=== PATIENT | female | born 1955 | race Caucasian/White ===

== ENCOUNTER → 2016-07-01 | Outpatient (CLI) | payer BC ==
[~2016-07-01] VITALS: Ht 167.6 cm; Wt 101.6 kg
[~2016-07-01] MED LIST: AMIT150T PO; AMLO5TAB4 PO; CALC-146 PO; CATHETER FLUSH 10 ML SYR IV PRN; CHOL20002 PO; DOCU-143 PO; FEXO-46 PO; GARL1TAB PO; KRIL1CAP18 PO; L.AC1CAP6 PO; LISI-552 PO; MELA10CA2 PO; MELO15TA39 PO; MULT-642 PO; OMEP20CA12 PO; TRAM-42 PO
--- NOTE | 2016-07-01 12:52 | ECHOCARDIOGRAPHY REPORT ---
PROCEDURE PHYSICIAN: CONNOR MANRIQUEZ DATE OF PROCEDURE: 07/01/2016 TWO DIMENSIONAL ECHOCARDIOGRAM REPORT PRIMARY PHYSICIAN: OTHER PHYSICIAN: REFERRING PHYSICIAN: Dr. Veronica Waterman ORDERING PHYSICIAN: INDICATION FOR THE PROCEDURE: Hypertension, TIA MEASUREMENTS DERIVED VALUES LV DIAMETER (LAX) NORMALS NORMALS Diastolic 4.8 (3.6-5.2) Eject. Fract. 60% (60%+/-6%) Systolic (2.3-3.9) Diastolic Vol. % Shortening (0.22-0.42) Systolic Vol. Aortic Root IVS THICKNESS Diastolic 1.1 (0.6-1.1) LVPW THICKNESS Diastolic 1.1 (0.6-1.1) LA DIAMETER Systolic 3.5 (2.1-3.7) FINDINGS: 1. Technical quality is good. 2. The left ventricle is normal in size with normal contractility. Systolic function appeared to be normal. Estimated ejection fraction 60%. 3. The left atrium is normal in size. No clot or thrombus were seen within the left atrium. 4. The right atrium and right ventricle are normal in size. No clot or thrombus were seen within the right side. 5. Mitral valve is normal in morphology with mild mitral regurgitation noted by color Doppler flow. No mitral valve prolapse. No mitral valve stenosis. 6. Aortic valve is trileaflet with normal opening and closing pattern. No significant aortic stenosis or regurgitation was seen. 7. Tricuspid valve is normal in morphology with mild tricuspid regurgitation noted by color Doppler flow. Doppler across tricuspid valve estimated pulmonary artery pressure of 27+ right atrial pressure. 8. Pulmonic valve is functioning normally. 9. No pericardial effusion. CONCLUSION: 1. Normal left ventricular size and systolic function. Estimated ejection fraction 60%. 2. Mild mitral and tricuspid regurgitation. 3. Estimated pulmonary artery pressure of 35 mmHg. Job ID: [id number] Dictated Date: 07/01/2016 11:57:27 Independent Agent Music Education Date: 07/01/2016 12:47:59 / leah
[2016-07-01 13:01] VITALS: BP 159/99
[2016-07-01 13:15] VITALS: BP 217/75
--- NOTE | 2016-07-01 20:57 | STRESS TEST ---
PROCEDURE PHYSICIAN: CONNOR MANRIQUEZ DATE OF PROCEDURE: 07/01/2016 EXERCISE MYOVIEW STRESS TEST REPORT REFERRING PHYSICIAN: Dr. Veronica Waterman. INDICATIONS FOR THE PROCEDURE: 1. Shortness of breath. 2. TIA. 3. Hypertension. BASELINE HEART RATE: 90 BASELINE BLOOD PRESSURE: 159/99. BASELINE EKG: Sinus rhythm with no ischemic changes. SUMMARY: The patient was injected with 10.19 mCi of technetium 99 Myoview and the resting images were obtained. Then the patient started exercising with a baseline heart rate, blood pressure and EKG mentioned above. At minute 5 and 10 seconds, she was injected with 31.4 mCi of technetium 99 Myoview. She was able to exercise for total of 6 minutes on standard Kenneth protocol, achieving maximum heart rate of 135, which is 85% of maximum expected heart rate. With peak exercise level, EKG was showing no significant ischemic changes. Blood pressure was 217/75. During recovery, heart rate and blood pressure returned to baseline. EKG returned to baseline. The resting and stress images were reviewed and compared in the short axis, horizontal long axis, and vertical long axis views. Review of the images showed breast attenuation affecting the quality of the images. There is questionable mild ischemia involving the mid to apical anterolateral and inferolateral wall. SSS is 9, SDS 5, TID value 0.87. On the gated images, the left ventricle appeared to be normal size with mild diffuse left ventricular hypokinesia. Calculated ejection fraction 46%. CONCLUSIONS: 1. Fair exercise tolerance a total of 6 minutes on standard Kenneth protocol. Total 7 METs, achieving 85% of maximum expected heart rate. 2. Severe hypertensive response to exercise. Returned to baseline during recovery. 3. Nondiagnostic EKG changes with exercise. Returned to baseline during recovery. 4. Breast attenuation affecting the quality of the study with mild reversible ischemia involving the mid to apical anterolateral and inferolateral wall. 5. Normal left ventricular size with mild diffuse left ventricular hypokinesia. Calculated ejection fraction 46%. Job ID: [id number] Dictated Date: 07/01/2016 16:52:48 Coal Conveyor Operator Date: 07/01/2016 20:52:13 / joelle
== END ==
LOC: CARD 09:57
PROVIDERS: ATTEND Internal Medicine Cardiovascular Disease
DX: I10 Essential (primary) hypertension (principal); Z87.891 Personal history of nicotine dependence; G47.33 Obstructive sleep apnea (adult) (pediatric)
CPT/HCPCS: 78452; 93017; 93306

== ENCOUNTER 2016-07-08 06:41 | Day surgery (SDC) | payer BC ==
[~2016-07-08] VITALS: Ht 167.6 cm; Wt 103.9 kg
[2016-07-08] VITALS (15 sets, daily range): BP systolic 93–155; BP diastolic 67–88
[2016-07-08] MEDS ORDERED: NS IV 1000 ML 1,000 ML ONE (06:59)
[2016-07-08] MEDS ORDERED: LIDOCAINE 1% INJ 20 ML (XYLOCAINE) VIAL ONE (06:59)
[2016-07-08] MEDS ORDERED: HEParin (CATH LAB) 2,000 ML IV ONE (06:59)
[2016-07-08] MEDS ORDERED: NS IV 1000 ML 1,000 ML IV SCH (07:30)
[2016-07-08 07:34] LABS: BILIRUBIN,URINE NEGATIVE (NEGATIVE); KETONES,URINE NEGATIVE (NEGATIVE); LEUKOCYTE ESTERASE ,URINE 3+ (NEGATIVE); NITRITE,URINE NEGATIVE (NEGATIVE); PH,URINE 6.5 (5-9); PROTEIN,URINE NEGATIVE (NEGATIVE); UROBILINOGEN,URINE NORMAL (NORMAL)
[2016-07-08 07:35] LABS: MEAN PLATELET VOLUME 9.9 FL (7.4-10.4); RED BLOOD COUNT 4.39 10^6/uL (4.35-5.85); RED CELL DISTRIBUTION WIDTH 14.7 % (10.0-14.5); WHITE BLOOD COUNT 8.5 10^3/uL (4.3-11.0)
[2016-07-08] MEDS ORDERED: CALC-146 PO (07:38)
[2016-07-08] MEDS ORDERED: FEXO-46 PO (07:38)
[2016-07-08] MEDS ORDERED: L.AC1CAP6 PO (07:38)
[2016-07-08] MEDS ORDERED: OMEP20CA12 PO (07:38)
[2016-07-08] MEDS ORDERED: AMLO5TAB4 PO (07:38)
[2016-07-08] MEDS ORDERED: KRIL1CAP18 PO (07:38)
[2016-07-08] MEDS ORDERED: MELO15TA39 PO (07:38)
[2016-07-08] MEDS ORDERED: LISI-552 PO (07:38)
[2016-07-08] MEDS ORDERED: DOCU-143 PO (07:38)
[2016-07-08] MEDS ORDERED: MULT-642 PO (07:38)
[2016-07-08] MEDS ORDERED: AMIT150T PO (07:38)
[2016-07-08] MEDS ORDERED: MELA10CA2 PO (07:38)
[2016-07-08] MEDS ORDERED: GARL1TAB PO (07:38)
[2016-07-08] MEDS ORDERED: CHOL20002 PO (07:38)
[2016-07-08] MEDS ORDERED: TRAM-42 PO (07:38)
[2016-07-08 07:44] LABS: PROTHROMBIN TIME PATIENT 13.1 SEC (12.2-14.7)
--- NOTE | 2016-07-08 07:48 | Diagnostic Imaging Report ---
INDICATION: Preoperative evaluation. History of shortness of air. Hypertension. COMPARISON: None FINDINGS: Single frontal radiographic view of the chest was obtained and demonstrates normal cardiac silhouette and pulmonary vasculature. Lungs show some linear opacities within the right lung base suggestive of scarring and/or atelectasis. There is otherwise no focal consolidation, large effusion, nor pneumothorax. Bony structures show no gross acute abnormality. IMPRESSION: 1. Probable linear scarring and/or atelectasis in the right lung base. Otherwise, no acute cardio pulmonary process. Dictated by: Dictated on workstation # [id number]
[2016-07-08 07:55] LABS: ALBUMIN 3.8 G/DL (3.2-4.5); BILIRUBIN,TOTAL 0.7 MG/DL (0.1-1.0); CALCIUM 9.2 MG/DL (8.5-10.1); CREATININE SERUM 0.99 MG/DL (0.60-1.30); POTASSIUM 4.1 MMOL/L (3.6-5.0); TOTAL PROTEIN 6.4 G/DL (6.4-8.2)
[2016-07-08] MEDS ORDERED: MIDAZOLAM 5 MG/5 ML (VERSED) VIAL ONE (07:58)
[2016-07-08] MEDS ORDERED: fentaNYL INJECTION 100 MCG/2 ML AMP ONE (07:58)
--- NOTE | 2016-07-08 08:10 | Cardiac Procedure Note-CS/ASA ---
Pre-Procedure Note Pre-Op Procedure Note H&P Reviewed The H&P was reviewed, patient examined and no changes noted. Date H&P Reviewed: Jul 08, 2016 Time H&P Reviewed: 08:10 Conscious Sedation Pre-Proced Time Reviewed: 08:10 ASA Class: 3 Airway Mallampati Classification: ([place] appropriate class) I. II. III, IV Lungs Heart ASA score ASA 1: a normal healthy patient ASA 2: a patient with a mild systemic disease (mid diabetes, controlled hypertension, obesity x ASA 3: a patient with a severe systemic disease that limits activity (angina , COPD, prior Myocardial infarction) ASA 4: a patient with an incapacitating disease that is a constant threat to life (CHF, renal failure) ASA 5: a moribund patient not expected to survive 24 hrs. (ruptured aneurysm) ASA 6: a declared brain patient whose organs are being harvested. For emergent operations, add the letter E after the classification Grade 3 Sedation Plan: Analgesia, Amnesia, Plan communicated to team members, Discussed options with patient/fam, Discussed risks with patient/fam Note The patient is an appropriate candidate to undergo the planned procedure, sedation, and anesthesia. The patient immediately re-assessed prior to indication. CONNOR MANRIQUEZ MD Jul 08, 2016 08:10
[2016-07-08 08:11] LABS: WBC,URINE 0-2 /HPF
[2016-07-08] MEDS ORDERED: HEParin 1000 UNIT/ML (10ML VIAL) FOR BOLUS ONE (08:25)
[2016-07-08] MEDS ORDERED: ADENOSINE 3 MG/1 ML (ADENOSCAN) 30ML VIAL IV ONE (08:25)
[2016-07-08] MEDS ORDERED: NITROGLYCERIN DRIP 25 MG/D5W 250 ML IV ONE (08:33)
[2016-07-08] MEDS ORDERED: PATIENT MAY USE OWN MEDS, ALL PO SCH (08:45)
[2016-07-08] MEDS ORDERED: DOCUSATE SODIUM 100 MG (COLACE) CAP PO PRN (08:45)
[2016-07-08] MEDS ORDERED: NON-FORMULARY MEDICATION 1 EA EA (Fexofenadine HCl 180 MG) PO SCH (09:00)
[2016-07-08] MEDS ORDERED: amLODIPine 5 MG (NORVASC) TAB PO SCH (09:00)
[2016-07-08] MEDS ORDERED: NON-FORMULARY MEDICATION 1 EA EA (L.acidoph & Paracasei,B.lactis (Probiotic) 1 EACH) PO SCH (09:00)
[2016-07-08] MEDS ORDERED: MULTIVITAMIN PO SCH (09:00)
[2016-07-08] MEDS ORDERED: NON-FORMULARY MEDICATION 1 EA EA (Krill/Om-3/Dha/Epa/Phospho/Ast (Krill Oil 1,000 mg Softg PO SCH (09:00)
[2016-07-08] MEDS ORDERED: lisINopril 20 MG (ZESTRIL) TAB PO SCH (09:00)
[2016-07-08] MEDS: NS IV 1000 ML 1,000 ML IV SCH ×2 (11:38→18:43)
--- NOTE | 2016-07-08 13:43 | DISCHARGE SUMMARY ---
PROCEDURE PHYSICIAN: CONNOR MANRIQUEZ DATE OF PROCEDURE: 07/08/2016 REFERRING PHYSICIANS: 1. Dr. Zurita 2. Dr. Veronica Waterman. BRIEF HISTORY: Mrs. Garcia is a 60-year-old lady with a history of hypertension, hyperlipidemia, TIA, has been having shortness of breath. She had an abnormal stress test. She was scheduled for cardiac catheterization. PROCEDURE NOTE: After explaining the procedure to the patient, all pros and cons were explained. All questions were answered. The patient signed a consent, then she was placed on the cardiac catheterization laboratory. The right groin was prepped in a sterile fashion. Local anesthesia applied to right groin. 6-Polish sheath was placed in the right femoral artery. Combination of right and left Sterling catheter were used to access the right and left coronary system. Multiple views were obtained. The patient was noted to have a lesion in the LAD. It appeared borderline. Due to the stress test, I decided to proceed with FFR evaluation. The patient was given 4000 units of heparin. FL guide was advanced to the left coronary system, then FFR wire was advanced to the LAD part distally. Baseline FFR was 0.91. Started on adenosine drip. After 3 minutes of adenosine drip, the patient's FFR was as low as 0.82. It was considered a borderline lesion. The wire was removed. The patient was given intracoronary nitroglycerin then angiogram showed no complication. At the end of the procedure, sheath was removed. Attempt to deploy Mynx has failed. Manual pressure applied, hemostasis achieved. Total contrast used is 70 mL. Total radiation is 286 mGy. FINDINGS: HEMODYNAMICS: LV pressure 170/16, end-diastolic pressure of 16, aortic pressure 169/84, mean of 120. ANATOMY: 1. LEFT MAIN CORONARY ARTERY: The left main coronary artery is bifurcating to left anterior descending and left circumflex artery with no obstructive disease. 2. LEFT ANTERIOR DESCENDING ARTERY: The left anterior descending artery has borderline lesion 50% proximal 50 to 60% mid lesion. FFR at baseline was 0.91. After 3 minutes of adenosine was 0.82. 3. LEFT CIRCUMFLEX ARTERY: The left circumflex artery is moderate in size with mild disease, nonobstructive disease. 4. RIGHT CORONARY ARTERY: The right coronary artery is moderate in size with no significant obstructive disease. 5. LEFT VENTRICULOGRAM: No left ventriculogram was done. CONCLUSION: 1. 50 to 60% stenosis in the proximal and mid LAD. Nonobstructive disease, FFR was 0.82 after adenosine injection. 2. Mild disease, otherwise. 3. Normal left ventricular end-diastolic pressure. DISCUSSION AND RECOMMENDATION: Medical therapy is recommended. No intervention is warranted. There is no contraindication to proceed with abdominal surgery. FINAL DIAGNOSES: 1. Shortness of breath on exertion. 2. Coronary artery disease. 3. Hypertension. 4. Hyperlipidemia. Job ID: [id number] Dictated Date: 07/08/2016 08:51:12 Crab Meat Processor Date: 07/08/2016 13:41:10/joelle
[2016-07-08] MEDS: lisINopril 20 MG (ZESTRIL) TAB PO SCH (15:40)
[2016-07-08] MEDS: amLODIPine 5 MG (NORVASC) TAB PO SCH (15:40)
[2016-07-08] MEDS: OMEPRAZOLE 20 MG (PriLOSEC) CAP NON-FORMULARY PO SCH (15:42)
[2016-07-08] MEDS ORDERED: AMITRIPTYLINE 150 MG (ELAVIL) TABLET PO SCH (21:00)
[2016-07-08] MEDS ORDERED: NON-FORMULARY MEDICATION 1 EA EA (Melatonin 10 MG) PO SCH (21:00)
[2016-07-08] MEDS ORDERED: MELATONIN 3 MG TABLET PO SCH (21:00)
[2016-07-08] MEDS: LACTOBACILLUS Acidoph/Bulgar (LACTINEX/FLORANEX) TAB PO SCH (22:53)
[2016-07-08] MEDS: MELOXICAM 15 MG TAB PO SCH (22:54)
[2016-07-09] VITALS: BP 155/60
[2016-07-09 04:00] VITALS: BP 154/86
[2016-07-09] MEDS: NS IV 1000 ML 1,000 ML IV SCH (04:45)
[2016-07-09] MEDS ORDERED: MULTIVIT W/MINERALS TAB (THERAGRAN M) PO SCH (07:00)
[2016-07-09] MEDS: OMEPRAZOLE 20 MG (PriLOSEC) CAP NON-FORMULARY PO SCH (07:11)
--- NOTE | 2016-07-09 07:52 | Discharge Inst-Post CATH ---
Discharge Inst-CATH Post Cardiac Cath D/C Inst Follow Up/Plan Appointment with Dr. Wallis's office in 2-4 weeks CARDIAC CATH DISCHARGE INSTRUCTIONS *Hold Metformin for 48 hours post heart cath. ACTIVITY * Go Home directly and rest. * Limit activity of the leg (or wrist if it was used) for 7 days including aerobics, swimming, jogging, bicycling, etc. * Restrict stair-climbing for 7 days if possible, if not, climb up with your non -cath leg, then bring together on the same step. * Avoid lifting, pushing, pulling or excessive movement of the affected extremity for 7 days. * Customary sexual activity may be resumed after 2 days-use caution not to use a position that strains or causes pain to the affected extremity. * No driving for 24 hours. * NO SMOKING. * Avoid straining for bowel movements for 7 days. * Gentle walking on level ground is allowed. * Returning to work will depend on the type of procedure and the results. Your doctor will discuss this with you. CALL YOUR DOCTOR FOR ANY OF THE FOLLOWING: *If bleeding from the puncture site occurs- Apply gentle pressure to site with clean cloth and call your doctor or EMS. * If a knot or lump forms under the skin, increases in size, or causes pain. * If bruising appears to be worsening or moving further down your leg instead of disappearing. * Temperature above 101 F. CARE OF YOUR GROIN INCISION; * Bruising or purple discoloration of the skin near the puncture site is common. * You may shower only, no bathtub bathing for 5 days. Be careful to avoid slipping as your leg may feel stiff. * If a closure device was used on your femoral artery, please see the attached guide regarding care of the device and your leg. * REMOVE the dressing from your groin the next day after your procedure in the shower. CARE OF YOUR WRIST INCISION; * Bruising or purple discoloration of the skin near the puncture site is common. * You may shower. * DO NOT submerge wrist. * Remove dressing in 24 hours. CONNOR WALLIS MD Jul 09, 2016 07:52
--- NOTE | 2016-07-09 07:55 | Cardiology Progress Note ---
Subjective Subjective/Events-last exam patient is feeling well, groin is healing well. Denied any chest pain or shortness of breath. Denied any palpitation. Review of Systems General: No Chills, No Night Sweats, No Fatigue, No Malaise, No Appetite, No Other HEENT: No Head Aches, No Visual Changes, No Eye Pain, No Ear Pain, No Dysphasia , No Sinus Congestion, No Post Nasal Drip, No Sore Throat, No Other Pulmonary: No Dyspnea, No Cough, No Pleuritic Chest Pain, No Other Cardiovascular: No: Chest Pain, Edema, Lt Headedness, Orthopnea, Other, Palpitations, Paroxysmal Noc. Dyspnea Objective-Cardiology Exam Last Set of Vital Signs Vital Signs 07/09/16 07/09/16 00:00 04:00 Temp 98.6 Pulse 90 Resp 16 B/P (MAP) 154/86 Pulse Ox 92 O2 Delivery Room Air Capillary Refill : I&O Bad tableGeneral: Alert, Oriented X3, Cooperative HEENT: Atraumatic, PERRLA Neck: Supple, No JVD, No Thyromegaly Lungs: Clear to Auscultation, Normal Air Movement Heart: Regular Rate, Normal S1, Normal S2, No Murmurs Abdomen: Normal Bowel Sounds, Soft, No Tenderness, No Hepatosplenomegaly, No Masses Extremities: No Clubbing, No Cyanosis, No Edema, Normal Pulses, No Tenderness/ Swelling Skin: No Rashes, No Breakdown, No Significant Lesion Neuro: Normal Gait, Normal Speech, Strength at 5/5 X4 Ext, Normal Tone, Sensation Intact Psych/Mental Status: Mental Status NL, Mood NL A/P-Cardiology Admission Diagnosis coronary artery disease Hypertension Hyperlipidemia Obesity Assessment/Plan Coronary artery disease mild to moderate disease in the LAD nonobstructive disease by FFR. Continue to monitor Hypertension, controlled, continue to monitor Hyperlipidemia/hypertriglyceridemia, educated on diet, continue on fish oil BMI 37, we discussed weight loss and exercise Questionable sleep apnea Clinical Quality Measures DVT/VTE Risk/Contraindication: Risk Factor Score Per Nursin RFS Level Per Nursing on Admit: 2=Moderate CONNOR MANRIQUEZ MD Jul 09, 2016 07:55
[2016-07-09] MEDS: MELOXICAM 15 MG TAB PO SCH (08:00)
[2016-07-09] MEDS: amLODIPine 5 MG (NORVASC) TAB PO SCH (08:00)
[2016-07-09] MEDS: LACTOBACILLUS Acidoph/Bulgar (LACTINEX/FLORANEX) TAB PO SCH (08:00)
[2016-07-09] MEDS ORDERED: CALCIUM CARB + VIT D 600 MG (CALCARB + D) TAB PO SCH (08:00)
[2016-07-09] MEDS: lisINopril 20 MG (ZESTRIL) TAB PO SCH (08:00)
[2016-07-09 08:44] VITALS: BP 147/76
[2016-07-09] MEDS ORDERED: FEXOFENADINE 180 MG TABLET PO SCH (09:00)
[2016-07-09 09:20] VITALS: BP 147/76
== END 2016-07-09 09:20 | disposition home or self-care (01) ==
LOC: CATH 06:41 → ICU 09:20 → CATH 07-09 09:20
PROVIDERS: ATTEND Internal Medicine Cardiovascular Disease
DX: I25.10 Atherosclerotic heart disease of native coronary artery without angina pectoris (principal); R94.39 Abnormal result of other cardiovascular function study; R78.5 Finding of other psychotropic drug in blood; I10 Essential (primary) hypertension; R06.02 Shortness of breath; G47.33 Obstructive sleep apnea (adult) (pediatric); Z86.73 Personal history of transient ischemic attack (TIA), and cerebral infarction without residual deficits; Z79.899 Other long term (current) drug therapy; Z86.718 Personal history of other venous thrombosis and embolism; Z82.49 Family history of ischemic heart disease and other diseases of the circulatory system
CPT/HCPCS: 36415; 71010; 80053; 80061; 81000; 85027; 85610; 85730; 87081; 93458; 93571

== ENCOUNTER 2017-12-07 06:00 | Outpatient (CLI) | payer BC ==
[~2017-12-07] VITALS: Ht 167.6 cm; Wt 103.9 kg
[~2017-12-07 06:00] MED LIST changes: -CATHETER FLUSH 10 ML SYR IV PRN; -GARL1TAB PO; +GARL1TAB2 PO
[2017-12-07] MEDS ORDERED: MELA1TAB16 PO (15:17)
[2017-12-07] MEDS ORDERED: APIX5TAB PO (15:17)
[2017-12-07] MEDS ORDERED: MAGN400T39 PO (15:17)
[2017-12-07] MEDS ORDERED: ASPI-586 PO (15:17)
== END 2017-12-07 15:54 | disposition home or self-care (01) ==
LOC: PREOP 06:00
PROVIDERS: ATTEND Surgery
DX: Z01.818 Encounter for other preprocedural examination (principal)

== ENCOUNTER 2017-12-09 12:21 | Day surgery (SDC) | payer BC ==
[~2017-12-09] VITALS: Ht 167.6 cm; Wt 103.9 kg
[~2017-12-09 12:21] MED LIST changes: +APIX5TAB PO; +ASPI-586 PO; +MAGN400T39 PO; +MELA1TAB16 PO
[2017-12-09] MEDS ORDERED: LACTATED RINGERS 1,000 ML IV PRN (12:52)
[2017-12-09 13:00] VITALS: BP 137/83
[2017-12-09] MEDS ORDERED: ceFAZolin INJECTION 1,000 MG in NS (IVPB) 50 ML IV ONE (13:00)
--- NOTE | 2017-12-09 13:01 | Progress Note-Pre Operative ---
Pre-Operative Progress Note H&P Reviewed The H&P was reviewed, patient examined and no changes noted. 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
[2017-12-09] MEDS ORDERED: morphine INJ 10 MG/ML 1ML (SYR OR VIAL) IVP PRN (13:15)
[2017-12-09] MEDS ORDERED: ACETAMINOPHEN 325 MG TABLET PO PRN (13:15)
[2017-12-09] MEDS ORDERED: ONDANSETRON 4 MG/2 ML (SDV) Z0FRAN IVP PRN ×2 (13:15→15:45)
[2017-12-09] MEDS ORDERED: HYDROcodone/APAP 5 MG/325 MG (LORTAB) TAB PO ONE (13:15)
[2017-12-09] MEDS ORDERED: ceFAZolin 1 GM/NS 50 ML IVPB IV ONE ×2 (13:15)
[2017-12-09] MEDS ORDERED: MIDAZOLAM 2 MG/2 ML (VERSED) VIAL ONE (14:11)
[2017-12-09] MEDS ORDERED: PROPOFOL INJECTION 50 ML IV ONE (14:11)
[2017-12-09] MEDS ORDERED: LIDOCAINE 1% INJ 20 ML 20 ML VIAL ONE ×2 (14:57→15:00)
[2017-12-09] MEDS ORDERED: HEParin (CENTRAL IV FLUSH) 500 UNIT/5 ML SYR ONE ×2 (14:57→14:59)
[2017-12-09] MEDS ORDERED: fentaNYL INJECTION 100 MCG/2 ML AMP ONE (15:12)
[2017-12-09] MEDS ORDERED: morphine INJ 10 MG/ML 1ML (SYR OR VIAL) IVP ONE ×2 (15:15→15:45)
--- NOTE | 2017-12-09 15:39 | Progress Note-Post Operative ---
Post-Operative Progess Note Surgeon (s)/Automotive Window Tinter (s) Surgeon Dr. Ishaan Koo M.D. Automotive Window Tinter: NONE Pre-Operative Diagnosis recurrent DVT while on anticoagulation Post-Operative Diagnosis Same Procedure & Operative Findings Date of Procedure 12/09/17 Procedure Performed/Findings Placement of IVC filter and Venogram. Placement IVC filter between L2-L3 level. Anesthesia Type MAC with Local Estimated Blood Loss Estimated blood loss (mL): minimal Specimens/Packing Specimens Removed None FELICIA CHENEY APRN Dec 09, 2017 3:39 pm
[2017-12-09] MEDS ORDERED: HYDR-3816 PO (15:40)
--- NOTE | 2017-12-09 15:42 | Discharge Inst-Surgical ---
D/C Lap Instructions-KIDO New, Converted, or Re-Newed RX: RX on Chart Follow Up as needed. Activity as tolerated No driving for 24 hours No driving while on pain medications Regular Diet Symptoms to Report: Fever over 101 degree F, Nausea/Vomiting Infection Signs and Symptoms to report: Increased redness, Foul odor of wound, Increased drainage Bathing instructions: May shower Operative Area Clean/Dry; Keep incision clean/dry If any problems/questions: Contact your physician or go to Emergency Room FELICIA CHENEY APRN Dec 09, 2017 3:42 pm
[2017-12-09] MEDS ORDERED: MEPERIDINE (DEMEROL) INJ 50 MG/ML IVP ONE (15:45)
[2017-12-09 16:25] VITALS: BP 130/81
[2017-12-09 16:55] VITALS: BP 134/78
[2017-12-09 17:05] VITALS: BP 134/78
--- NOTE | 2017-12-09 19:15 | Diagnostic Imaging Report ---
INDICATION: IVC filter placement. EXAMINATION: Intraoperative fluoroscopy used by Dr. Koo for filter placement. 1 minute and 5 seconds of fluoroscopy time was used in surgery. IMPRESSION: Intraoperative fluoroscopy used per Dr. Koo in surgery for IVC filter placement. Dictated by: Dictated on workstation # [id number]
--- NOTE | 2017-12-09 22:26 | OPERATIVE REPORT ---
DATE OF SERVICE: 12/09/2017 ATTENDING PRIMARY CARE PHYSICIAN: Veronica Waterman MD PREOPERATIVE DIAGNOSIS: History of multiple deep vein thrombosis while on anticoagulation. POSTOPERATIVE DIAGNOSIS: History of multiple deep vein thrombosis while on anticoagulation. PROCEDURE: Placement of an inferior vena caval filter and venogram. SURGEON: Cuong Schaefer MD ANESTHESIA: Monitored anesthesia care with local. ESTIMATED BLOOD LOSS: Minimal. FINDINGS: A takeoff of the renal veins at approximately the L1 level. The filter was placed between lumbar vertebral levels 2 and 3 under fluoroscopy. IVC diameter around 15mm. DISPOSITION: The patient tolerated the procedure well. INDICATIONS: The patient is a 62-year-old female who has had a longstanding history of bilateral lower extremity deep vein thrombosis. She had her initial deep vein thrombosis in her right lower extremity, which she had twice. She reports that this presented with right lower extremity edema, swelling and pain. She was found to have an extensive clot on ultrasound. She was placed on anticoagulation, however, did develop another clot requiring medical therapy again. She also does have a strong family history of clotting disorders with multiple family members having advanced atherosclerotic disease with stroke, myocardial infarctions as well as deep vein thromboses and pulmonary emboli. She recently has a left lower extremity swelling and pain like she had experienced before. An ultrasound was performed, which did show extensive deep vein thrombosis encompassing the superficial femoral, popliteal as well as at the level of the trifurcation. She was seen at [facility] where a VQ scan was performed, which showed a low probability of pulmonary embolism. Due to her increased risk and multiple history of deep vein thromboses as well on anticoagulation, she would like to have an inferior vena cava filter placed. DESCRIPTION OF PROCEDURE: The patient was brought to the operating room, laid supine on the table. After adequate IV pain, sedative medications and monitored anesthesia care, the lower extremity and perineal region as well as lower abdomen were prepped and draped in standard surgical fashion. A 1% lidocaine with epinephrine was then used to anesthetize the overlying skin in the right groin. The right femoral vein was then cannulated with drawing of venous blood. The guidewire was then inserted without any resistance. This was done under fluoroscopy. The lumbar vertebrae were then marked starting at the 12th rib. A venogram was performed, which did show the takeoff of the renal veins at approximately the L1 level. The diameter of the IVC was approximately 15mm in largest diameter. Under direct visualization using fluoroscopy, we then proceeded to deploy the trap-louise inferior vena cava filter between levels L2 and L3. The diameter of the vena cava was approximately 15 mm. The catheter was firmly placed on subsequent fluoroscopy. The catheter was deployed after the dilator and sheath were introduced over the guidewire and the filter pushed through the catheter with the pusher. The catheter was then removed while applying direct pressure for approximately 60 seconds with visualization of good hemostasis. The catheter was then covered with a dry sterile dressing. The patient tolerated the procedure well. We will instruct her to not do any heavy lifting or exertion for the next 24 to 48 hours; however, she may resume normal activities of daily living. She may also start her anticoagulation regimen today. Job ID: [id number] DocumentID: [id number] Dictated Date: 12/09/2017 16:30:53 Control Systems Eng Date: 12/09/2017 22:25:58 Dictated By: CUONG SCHAEFER MD MTDD
== END 2017-12-09 17:00 | disposition home or self-care (01) ==
LOC: SDC 12:21 → EDSTATUS 14:15 → SDC 17:00
PROVIDERS: ATTEND Surgery
DX: I82.503 Chronic embolism and thrombosis of unspecified deep veins of lower extremity, bilateral (principal); I10 Essential (primary) hypertension; G47.33 Obstructive sleep apnea (adult) (pediatric); K21.9 Gastro-esophageal reflux disease without esophagitis; E66.9 Obesity, unspecified; Z68.37 Body mass index [BMI] 37.0-37.9, adult; Z79.01 Long term (current) use of anticoagulants; Z79.82 Long term (current) use of aspirin
CPT/HCPCS: 87081

== ENCOUNTER → 2018-11-21 | Outpatient (CLI) | payer BC ==
[~2018-11-21] VITALS: Ht 167.6 cm; Wt 105.2 kg
[~2018-11-21] MED LIST changes: +CATHETER FLUSH 10 ML SYR IV PRN; +HYDR-3816 PO; -OMEP20CA12 PO; +OMEP20CA13 PO; +REGADENOSON 0.4 MG/5 ML SYR (LEXISCAN) IV ONE
--- NOTE | 2018-11-21 19:06 | STRESS TEST ---
DATE OF SERVICE: 11/21/2018 LEXISCAN MYOVIEW STRESS TEST REPORT REFERRING PHYSICIAN: Veronica Waterman MD Baseline heart rate is 82. Baseline blood pressure is 164/95. Baseline EKG is sinus rhythm with no ischemic changes. In summary, the patient was injected with 10.99 mCi of technetium-99 Myoview and the resting images were obtained. Then, the patient received 0.4 mg of Lexiscan followed by 31.5 mCi of technetium-99 Myoview. Throughout the test, there were no EKG changes. The resting and stress images were reviewed and compared in the short axis, horizontal long axis, and vertical long axis views. Review of the images showed breast attenuation with reversible ischemia involving the mid to apical anterior wall and anterolateral wall. SSS is 9, SDS 7, and TID value 0.99. On the gated images, the left ventricle appeared to be normal size with normal contractility. Calculated ejection fraction is 52%. CONCLUSION: 1. The patient tolerated Lexiscan well. 2. Breast attenuation with reversible ischemia involving the mid to apical anterior wall and anterolateral wall. 3. Normal left ventricular size with normal contractility. Calculated ejection fraction is 52%. Job ID: [id number] DocumentID: [id number] Dictated Date: 11/21/2018 16:42:56 Director Regulatory Compliance Date: 11/21/2018 19:06:20 Dictated By: CONNOR MANRIQUEZ MD
== END ==
LOC: CARD 07:48
PROVIDERS: ATTEND Physician Assistant
DX: I51.7 Cardiomegaly (principal); I99.8 Other disorder of circulatory system; I25.10 Atherosclerotic heart disease of native coronary artery without angina pectoris; I10 Essential (primary) hypertension; G47.33 Obstructive sleep apnea (adult) (pediatric); G45.9 Transient cerebral ischemic attack, unspecified
CPT/HCPCS: 78452; 93017; 93306

== ENCOUNTER 2018-11-30 06:46 | Day surgery (SDC) | payer BC ==
[~2018-11-30] VITALS: Ht 167.6 cm; Wt 105.2 kg
[2018-11-30] VITALS (13 sets, daily range): BP systolic 110–134; BP diastolic 54–86
[~2018-11-30 06:46] MED LIST changes: -CATHETER FLUSH 10 ML SYR IV PRN; +HEParin (CATH LAB) 2,000 ML IV ONE; +LIDOCAINE 1% INJ 20 ML 20 ML VIAL ONE; +NS IV 1000 ML 1,000 ML ONE; -REGADENOSON 0.4 MG/5 ML SYR (LEXISCAN) IV ONE
[2018-11-30] MEDS ORDERED: NS IV 1000 ML 1,000 ML IV SCH (07:00)
[2018-11-30 07:16] LABS: BILIRUBIN,URINE NEGATIVE (NEGATIVE); CLARITY,URINE CLEAR; COLOR,URINE YELLOW; GLUCOSE, URINE (UA) NEGATIVE (NEGATIVE); HEMOGLOBIN 13.2 G/DL (11.5-16.0); KETONES,URINE NEGATIVE (NEGATIVE); LEUKOCYTE ESTERASE ,URINE 3+ (NEGATIVE); NITRITE,URINE NEGATIVE (NEGATIVE); PH,URINE 7 (5-9); PROTEIN,URINE NEGATIVE (NEGATIVE); RED CELL DISTRIBUTION WIDTH 14.2 % (10.0-14.5); UROBILINOGEN,URINE NORMAL (NORMAL)
[2018-11-30] MEDS ORDERED: MIDAZOLAM 5 MG/5 ML (VERSED) VIAL ONE (07:19)
[2018-11-30] MEDS ORDERED: fentaNYL INJECTION 100 MCG/2 ML AMP ONE (07:19)
[2018-11-30] MEDS ORDERED: GABA-488 PO (07:28)
[2018-11-30 07:30] LABS: PROTHROMBIN TIME PATIENT 13.8 SEC (12.2-14.7)
[2018-11-30 07:32] LABS: BACTERIA,URINE FEW /HPF; WBC,URINE 50-100 /HPF
[2018-11-30 07:39] LABS: ALBUMIN 4.3 GM/DL (3.2-4.5); BILIRUBIN,TOTAL 0.6 MG/DL (0.1-1.0); CALCIUM 9.5 MG/DL (8.5-10.1); TOTAL PROTEIN 7.3 GM/DL (6.4-8.2)
[2018-11-30] MEDS ORDERED: MELA10TA3 PO (07:47)
[2018-11-30] MEDS ORDERED: CRAN300T PO (07:50)
[2018-11-30] MEDS ORDERED: VITA400C58 PO (07:50)
[2018-11-30] MEDS ORDERED: VITA1CAP19 PO (07:55)
[2018-11-30] MEDS ORDERED: UBID200C36 PO (07:55)
--- NOTE | 2018-11-30 07:56 | NUR ---
SPOKE WITH PATIENT (SHE BROUGHT IN ALL HER BOTTLES) TO COMPLETE THE MED REC. TRAMADOL 50MG: PT INDICATES SHE TAKES 2 TS BID ( DIRECTIONS ON BOTTLE WERE 1-2 TABS TID) PT WAS ABLE TO VERIFY ALL HER MEDS WELL TELLING ME HOW SHE TAKES EACH ONE. OTC MEDS: VITAMIN E 400M DAILY CRANBERRY: 2 HS COQ1O: 1 DAILY MAG-OXIDE 400M HS ASPIRIN 81M DAILY SUPER B COMPLEX: 1 DAILY OMEPRAZOLE 20M DAILY VITAMIN D3: 1 HS DOCUSATE 100M HS MELATONIN 10M HS KRILL OIL: 1HS GARLIC: 1 HS CALCIUM CITRATE: 1 HS MULTIVITAMIN: 1 DAILY FEXOFENADINE 180M DAILY PROBIOTIC: 1 DAILY ACETAMINOPHEN 325M TABS Q 8 H PRN
--- NOTE | 2018-11-30 07:59 | Diagnostic Imaging Report ---
INDICATION: Preop. No chest complaints. Cardiac catheterization. FINDINGS: Right infrahilar and perihilar subsegmental atelectasis present substantially improved from the previous exam. The residual density could be scarring. No evidence for pneumonia and there is no failure pattern. No pleural fluid or pneumothorax. IMPRESSION: Scarring versus mild infrahilar right-sided partial atelectasis. No acute appearing cardiopulmonary abnormality. Dictated by: Dictated on workstation # [id number]
[2018-11-30] MEDS ORDERED: ACET325T49 PO (08:03)
--- NOTE | 2018-11-30 08:14 | Cardiac Procedure Note-CS/ASA ---
Pre-Procedure Note Pre-Op Procedure Note H&P Reviewed The H&P was reviewed, patient examined and no changes noted. Date H&P Reviewed: Nov 30, 2018 Time H&P Reviewed: 08:14 Conscious Sedation Pre-Proced Time 08:14 ASA Score 3 For ASA 3 and 4: Consider anesthesia and medical clearance. Also, for patients with a history of failed moderate sedation consider anesthesia. Airway Lungs Heart ASA score ASA 1: a normal healthy patient ASA 2: a patient with a mild systemic disease (mid diabetes, controlled hypertension, obesity x ASA 3: a patient with a severe systemic disease that limits activity (angina, COPD, prior Myocardial infarction) ASA 4: a patient with an incapacitating disease that is a constant threat to life (CHF, renal failure) ASA 5: a moribund patient not expected to survive 24 hrs. (ruptured aneurysm) ASA 6: a declared brain- patient whose organs are being harvested. For emergent operations, add the letter E after the classification Mallampati Classification Grade 3 Sedation Plan Analgesia, Amnesia, Plan communicated to team members, Discussed options with patient/fam, Discussed risks with patient/fam The patient is an appropriate candidate to undergo the planned procedure, sedation, and anesthesia. The patient immediately re-assessed prior to indication. CONNOR MANRIQUEZ MD Nov 30, 2018 08:14
[2018-11-30] MEDS ORDERED: HEParin 1000 UNIT/ML (10ML VIAL) FOR BOLUS ONE (08:24)
[2018-11-30] MEDS ORDERED: EPTIFIBATIDE BOLUS 20 ML IV ONE (08:24)
[2018-11-30] MEDS ORDERED: NITRO DRIP 25000 MCG/D5W 250 ML IV ONE (08:44)
[2018-11-30] MEDS ORDERED: CLOPIDOGREL 300 MG (PLAVIX) TABLET PO ONE (08:54)
[2018-11-30] MEDS ORDERED: ASPIRIN 81 MG CHEW (CHILDREN'S ASA) ONE (08:54)
[2018-11-30] MEDS ORDERED: ACETAMINOPHEN 325 MG TABLET PO PRN (09:00)
[2018-11-30] MEDS ORDERED: PATIENT MAY USE OWN MEDS, ALL PO SCH (09:00)
--- NOTE | 2018-11-30 09:13 | Cardiac Cath Report ---
Cardiac Cath Report Physician (s)/Grab Jack Worker (s) Physician CONNOR MANRIQUEZ MD Pre-Procedure Diagnosis Pre-Procedure Diagnosis: coronary artery disease Post-Procedure Note Procedure Start Date: Nov 30, 2018 Name of Procedure: Left heart catheterization Stent to the LAD Findings/Procedure Note PROCEDURE NOTE: 63-year-old lady with known coronary artery disease was moderate in the past, had an abnormal stress test with ischemia in the anterior wall, scheduled for cardiac catheterization possible PTCA. After explaining the procedure to the patient, all pros and cons were explained, all questions were answered. The patient signed the consent and then she was placed on the cardiac catheterization laboratory. Groin was prepped SL fashion local anesthesia was used. Sheath placed in the right femoral artery. Sterling right and left catheter were used to access the coronary system. Pigtail was used to access the left ventricular cavity. Left ventriculogram was not done, pressure was measured Patient was given 6000 units of heparin, double bolus Integrilin. FL guide was advanced to the left coronary system, patient has 95 percent stenosis with haziness in the proximal and mid LAD, I advanced 2.5 x 15 mm balloon with a 2 inflation then I will as unable to advance Xience stent, I exchanged it to Integrity 2.75x22 millimeter stent expanded under 15 destiny to 3.05 mm, angiogram showed excellent results. At the end of the procedure the sheath was removed. Closure device was used FINDINGS: Hemodynamics LV 132/9, end-diastolic pressure of 9 Aorta 119/62 mean of 60 ANATOMY: Left Main is free of obstructive disease Left Anterior Descending has a long segment with severe stenosis with an area of 95 percent stenosis/subtotal occlusion, successful balloon angioplasty with difficulty to advance stent then successful deployment of integrity 2.7522 mm expanded to 3.05 mm with excellent results, mild irregularity in the proximal portion of the LAD, nonobstructive disease Left Circumflex is moderate in size with 30-40 percent stenosis in the proximal portion nonobstructive disease Right Coronory Artery is dominant artery with mild disease nonobstructive disease LV Gram was not done, pressure was measured CONCLUSION: 1. Severe stenosis/subtotal occlusion in the proximal and mid LAD, successful complex balloon angioplasty then deployment of drug-eluting integrity stent 2.75 x 22 mm expanded to 3.05 mm with excellent results. 2. Mild tp moderate disease in the proximal circumflex artery, nonobstructive disease, mild disease in the right coronary artery 3. Normal left ventricular end-diastolic pressure DISCUSSION AND RECOMMENDATION: showing was started on aspirin and Plavix, I will add Eliquis tomorrow, continue to maximize medical therapy Anesthesia Type: Conscious Sedation Estimated blood loss (mL): 25 ml Contrast Amount: 100 ml Total Radiation Dose: 893 mGy Post-Procedure Diagnosis Post-operative diagnosis: Coronary artery disease Hypertension Hyperlipidemia Chest pain CONNOR MANRIQUEZ MD Nov 30, 2018 09:13
[2018-11-30] MEDS: GABAPENTIN 300 MG (NEURONTIN) CAP PO SCH ×2 (10:54→20:33)
[2018-11-30] MEDS: lisINopril 20 MG (PRINIVIL) TABLET PO SCH (10:54)
[2018-11-30] MEDS: ASPIRIN E.C. 81 MG (ECOTRIN) TAB PO SCH (10:55)
[2018-11-30] MEDS: MULTIVIT W/MINERALS TAB (THERAGRAN M) PO SCH (10:56)
[2018-11-30] MEDS: CLOPIDOGREL 75 MG (PLAVIX) TABLET PO SCH (10:56)
[2018-11-30] MEDS: NS IV 1000 ML 1,000 ML IV SCH ×2 (11:16→14:52)
[2018-11-30] MEDS ORDERED: AMITRIPTYLINE 150 MG (ELAVIL) TABLET PO SCH (21:00)
[2018-11-30] MEDS ORDERED: ATORVASTATIN 10 MG (LIPITOR) TABLET PO SCH (21:00)
[2018-11-30] MEDS ORDERED: OMEGA 3 (FISH OIL) 1000 MG CAP PO SCH (21:00)
[2018-11-30] MEDS ORDERED: MELATONIN 3 MG TABLET PO SCH (21:00)
[2018-12-01] VITALS: BP 137/82
[2018-12-01 03:33] LABS: HEMOGLOBIN 11.9 G/DL (11.5-16.0); MEAN PLATELET VOLUME 10.2 FL (7.4-10.4); RED CELL DISTRIBUTION WIDTH 14.2 % (10.0-14.5); WHITE BLOOD COUNT 11.8 10^3/uL (4.3-11.0)
[2018-12-01 03:55] LABS: BUN/CREATININE RATIO 17; CALCIUM 9.3 MG/DL (8.5-10.1); CARBON DIOXIDE 25 MMOL/L (21-32); CHLORIDE 105 MMOL/L (98-107); CREATININE SERUM 0.84 MG/DL (0.60-1.30); GFR ESTIMATED > 60; GLUCOSE 106 MG/DL (70-105); POTASSIUM 4.4 MMOL/L (3.6-5.0); SODIUM 140 MMOL/L (135-145)
[2018-12-01 04:00] VITALS: BP 132/58
[2018-12-01] MEDS: NS IV 1000 ML 1,000 ML IV SCH (06:09)
[2018-12-01] MEDS: MULTIVIT W/MINERALS TAB (THERAGRAN M) PO SCH (06:39)
[2018-12-01] MEDS: GABAPENTIN 300 MG (NEURONTIN) CAP PO SCH (07:54)
[2018-12-01] MEDS: CLOPIDOGREL 75 MG (PLAVIX) TABLET PO SCH (07:54)
[2018-12-01] MEDS: lisINopril 20 MG (PRINIVIL) TABLET PO SCH (07:54)
[2018-12-01] MEDS: ASPIRIN E.C. 81 MG (ECOTRIN) TAB PO SCH (07:54)
[2018-12-01] MEDS ORDERED: CLOP75TA28 PO (08:09)
[2018-12-01] MEDS ORDERED: ATOR10TA66 PO (08:09)
--- NOTE | 2018-12-01 08:09 | Discharge Inst-Post CATH ---
Discharge Inst-CATH/EP Problems Reviewed?: Yes Post Cardiac Cath/EP D/C Inst Follow Up/Plan Appointment with Dr. MANRIQUEZ's office in 2-4 weeks <b>CARDIAC CATH/EP PROCEDURE DISCHARGE INSTRUCTIONS</b> ACTIVITY * Go Home directly and rest. * Limit activity of the leg (or wrist if it was used) for 7 days including aerob ics, swimming, jogging, bicycling, etc. * Restrict stair-climbing for 7 days if possible, if not, climb up with your non-cath leg, then bring together on the same step. * Avoid lifting, pushing, pulling or excessive movement of the affected extremity for 7 days. * Customary sexual activity may be resumed after 2 days-use caution not to use a position that strains or causes pain to the affected extremity. * No driving for 24 hours. * NO SMOKING. * Avoid straining for bowel movements for 7 days. * Gentle walking on level ground is allowed. * Returning to work will depend on the type of procedure and the results. Your doctor will discuss this with you. CALL YOUR DOCTOR FOR ANY OF THE FOLLOWING: *If bleeding from the puncture site occurs- Apply gentle pressure to site with clean cloth and call your doctor or EMS. * If a knot or lump forms under the skin, increases in size, or causes pain. * If bruising appears to be worsening or moving further down your leg instead of disappearing. * Temperature above 101 F. CARE OF YOUR GROIN INCISION; * Bruising or purple discoloration of the skin near the puncture site is common. * You may shower only, no bathtub bathing for 5 days. Be careful to avoid slipping as your leg may feel stiff. * If a closure device was used on your femoral artery, please see the attached guide regarding care of the device and your leg. * Leave dressing on FOR 24 hours. CARE OF YOUR WRIST INCISION; * Bruising or purple discoloration of the skin near the puncture site is common. * You may shower. * DO NOT submerge wrist. * Leave dressing on FOR 24 hours. CONNOR MANRIQUEZ MD Dec 01, 2018 08:09
[2018-12-01 08:12] VITALS: BP 138/60
--- NOTE | 2018-12-01 08:18 | Cardiology Progress Note ---
Subjective Date Seen by Provider: Dec 01, 2018 Time Seen by Provider: 08:15 Subjective/Events-last exam Patient is feeling better, no new complaint, groin is healing well. Review of Systems General: No Chills, No Night Sweats, No Fatigue, No Malaise, No Appetite, No Other HEENT: No Head Aches, No Visual Changes, No Eye Pain, No Ear Pain, No Dysphasia, No Sinus Congestion, No Post Nasal Drip, No Sore Throat, No Other Pulmonary: No Dyspnea, No Cough, No Pleuritic Chest Pain, No Other Cardiovascular: No: Chest Pain, Palpitations, Orthopnea, Paroxysmal Noc. Dyspnea, Edema, Lt Headedness, Other Objective-Cardiology Exam Last Set of Vital Signs Vital Signs 11/30/18 12/01/18 16:00 08:12 Temp 98.5 Pulse 86 Resp 18 B/P (MAP) 138/60 (86) Pulse Ox 95 O2 Delivery Room Air O2 Flow Rate 4.00 Capillary Refill : Less Than 3 Seconds General: Alert, Oriented X3, Cooperative HEENT: Atraumatic, PERRLA Neck: Supple, No JVD, No Thyromegaly Lungs: Clear to Auscultation, Normal Air Movement Heart: Regular Rate, Normal S1, Normal S2, No Murmurs Abdomen: Normal Bowel Sounds, Soft, No Tenderness, No Hepatosplenomegaly, No Masses Extremities: No Clubbing, No Cyanosis, No Edema, Normal Pulses, No Tenderness/Swelling Skin: No Rashes, No Breakdown, No Significant Lesion Neuro: Normal Gait, Normal Speech, Strength at 5/5 X4 Ext, Normal Tone, Sensation Intact Psych/Mental Status: Mental Status NL, Mood NL Results Lab Laboratory Tests 12/01/18 02:54 A/P-Cardiology Admission Diagnosis Coronary artery disease Hypertension Hyperlipidemia Chest pain Assessment/Plan Chest pain nonspecific etiology better at this time Coronary artery disease, status post stenting to the LAD as described below 1. Severe stenosis/subtotal occlusion in the proximal and mid LAD, successful complex balloon angioplasty then deployment of drug-eluting integrity stent 2.75 x 22 mm expanded to 3.05 mm with excellent results. 2. Mild tp moderate disease in the proximal circumflex artery, nonobstructive disease, mild disease in the right coronary artery 3. Normal left ventricular end-diastolic pressure Hypertension, continue current medication monitor blood pressure Hyperlipidemia started on statin Chronic anticoagulation with Eliquis. Continue on aspirin, Plavix and Eliquis for now CONNOR MANRIQUEZ MD Dec 01, 2018 08:18
[2018-12-01] MEDS ORDERED: LORATADINE (CLARITIN) 10 MG TAB PO SCH (09:00)
[2018-12-01] MEDS ORDERED: PANTOPRAZOLE 20 MG TABLET (PROTONIX) PO SCH (09:00)
--- NOTE | 2018-12-01 09:30 | NUR ---
QING AMEZQUITA demonstrates understanding of discharge instructions and accurately returns instructions upon questioning. Copy of Post-Discharge Instructions and Medication Discharge Instructions given to pt. QING AMEZQUITA is able to manage continuing needs after discharge. Patients belongings returned to pt. Skin dry and intact; no breakdown noted. Patient discharged from [facility] on 12/01/18 at 0930. QING AMEZQUITA left floor via ambulation, accompanied by staff.
[2018-12-01] MEDS ORDERED: amLODIPine 5 MG (NORVASC) TAB PO SCH (19:00)
[2018-12-01] MEDS ORDERED: MAGNESIUM OXIDE (MAG-OX)400 MG TAB PO SCH (21:00)
== END 2018-12-01 09:30 | disposition home or self-care (01) ==
LOC: CATH 06:46 → ICU 09:23 → CATH 12-01 09:30
PROVIDERS: ATTEND Internal Medicine Cardiovascular Disease
DX: I25.10 Atherosclerotic heart disease of native coronary artery without angina pectoris (principal); I10 Essential (primary) hypertension; I65.29 Occlusion and stenosis of unspecified carotid artery; I82.409 Acute embolism and thrombosis of unspecified deep veins of unspecified lower extremity; E78.5 Hyperlipidemia, unspecified; M06.9 Rheumatoid arthritis, unspecified; G47.33 Obstructive sleep apnea (adult) (pediatric); F32.9 Major depressive disorder, single episode, unspecified; M79.7 Fibromyalgia; K21.9 Gastro-esophageal reflux disease without esophagitis; Z79.01 Long term (current) use of anticoagulants; Z79.82 Long term (current) use of aspirin; Z79.899 Other long term (current) drug therapy; Z86.73 Personal history of transient ischemic attack (TIA), and cerebral infarction without residual deficits; Z82.49 Family history of ischemic heart disease and other diseases of the circulatory system; Z83.511 Family history of glaucoma; Z82.3 Family history of stroke; Z87.891 Personal history of nicotine dependence; Z88.6 Allergy status to analgesic agent
CPT/HCPCS: 36415; 71045; 80048; 80053; 80061; 81000; 85027; 85610; 85730; 87077; 87081; 87088; 87186; 93005; 93458

== ENCOUNTER → 2020-05-08 | Outpatient (CLI) | payer MEDICARE, OTHER ==
[~2020-05-08] VITALS: Ht 167 cm; Wt 108.0 kg
[~2020-05-08] MED LIST changes: +ACET325T49 PO; +ATOR10TA66 PO; +CATHETER FLUSH 10 ML SYR IV PRN; +CLOP75TA28 PO; +CRAN300T PO; +GABA-488 PO; -HEParin (CATH LAB) 2,000 ML IV ONE; +HYDR-34 PO; -HYDR-3816 PO; -LIDOCAINE 1% INJ 20 ML 20 ML VIAL ONE; +MELA10TA3 PO; -NS IV 1000 ML 1,000 ML ONE; -OMEP20CA13 PO; +OMEP20CA18 PO; +REGADENOSON 0.4 MG/5 ML SYR (LEXISCAN) IV ONE; +UBID200C36 PO; +VITA-272 PO; +VITA1CAP19 PO
[2020-05-08 08:59] VITALS: BP 155/81
--- NOTE | 2020-05-08 12:30 | Cardiology Stress Test Report ---
Stress Test Report Date of Procedure/Referring: Date of Procedure: May 08, 2020 Ramandeep Conn Admitting Physician Veronica Waterman MD Indications: Coronary artery disease Baseline Heart Rate: 67 Baseline Blood Pressure: Blood Pressure Systolic: 155 Blood Pressure Diastolic: 81 Baseline Vitals Vital Signs Date Time Temp Pulse Resp B/P (MAP) Pulse Ox O2 Delivery O2 Flow Rate FiO2 05/08/20 08:59 67 155/81 (105) Baseline EKG: Baseline EKG: NSR Summary After explaining the procedure to the patient, she signed a consent and then brought to the stress nuclear laboratory. Patient received 0.4 mg Lexiscan for stress test, ECG, heart rate and blood pressure were monitored continuously. Resting and stress dose of radio tracer were injected, imaging was acquired and reviewed in short axis, horizontal long axis and vertical long axis views. TID: 1.07 SSS: 11 SDS: 7 EF: 47 1. Patient tolerated Lexiscan well 2. Patchy uptake with extracardiac attenuation, there is to area of questionable ischemia of basal to mid anterior septum and mid to apical anterior lateral wall, could be secondary to extracardiac attenuation. Overall the test is considered equivocal 3. Normal left ventricular size, mild diffuse hypokinesia, EF 47 percent CONNOR MANRIQUEZ MD May 08, 2020 12:30
== END ==
LOC: CARD 07:30
PROVIDERS: ATTEND Physician Assistant
DX: I25.10 Atherosclerotic heart disease of native coronary artery without angina pectoris (principal)
CPT/HCPCS: 78452; 93017; A9502

== ENCOUNTER → 2020-05-09 | Outpatient (CLI) | payer MEDICARE, OTHER ==
[~2020-05-09] MED LIST changes: -CATHETER FLUSH 10 ML SYR IV PRN; -REGADENOSON 0.4 MG/5 ML SYR (LEXISCAN) IV ONE
== END ==
LOC: CARD 10:00
PROVIDERS: ATTEND Physician Assistant
DX: I25.10 Atherosclerotic heart disease of native coronary artery without angina pectoris (principal)
CPT/HCPCS: 93306

== ENCOUNTER 2020-05-17 12:22 | Outpatient (CLI) | payer MEDICARE, OTHER ==
[~2020-05-17 12:22] MED LIST changes: -LISI-552 PO; +LISI20TA26 PO
== END 2020-05-17 13:12 | disposition home or self-care (01) ==
LOC: SLEEP 12:22
PROVIDERS: ATTEND Internal Medicine Cardiovascular Disease
DX: G47.33 Obstructive sleep apnea (adult) (pediatric) (principal)
CPT/HCPCS: G0399

== ENCOUNTER 2020-05-22 10:00 | Day surgery (SDC) | payer MEDICARE, OTHER ==
[~2020-05-22] VITALS: Ht 167.7 cm; Wt 108.6 kg
[2020-05-22] VITALS (21 sets, daily range): BP systolic 152–174; BP diastolic 72–95
[2020-05-22 08:16] LABS: HEMOGLOBIN 13.7 g/dL (11.5-16.0); MEAN PLATELET VOLUME 10.2 fL (9.0-12.2); WHITE BLOOD COUNT 12.9 10^3/uL (4.3-11.0)
--- NOTE | 2020-05-22 08:23 | Diagnostic Imaging Report ---
EXAMINATION: Chest 1 view HISTORY: Preoperative evaluation, ventriculomegaly. COMPARISON: Chest radiograph 11/30/2018. FINDINGS: Stable mild enlargement of the cardiac silhouette. Pulmonary vasculature are normal. Minimal streaky opacities within the right lung base. No pleural effusion or pneumothorax. The osseous structures are intact. IMPRESSION: 1. Right basilar atelectasis or consolidation. Dictated by: Dictated on workstation # [id number]
[2020-05-22] MEDS: NS IV 1000 ML 1,000 ML IV SCH ×4 (08:28→17:26)
[2020-05-22 08:39] LABS: ALBUMIN 4.2 GM/DL (3.2-4.5); BILIRUBIN,TOTAL 0.7 MG/DL (0.1-1.0); CALCIUM 9.4 MG/DL (8.5-10.1); CREATININE SERUM 0.94 MG/DL (0.60-1.30); POTASSIUM 4.1 MMOL/L (3.6-5.0); PROTHROMBIN TIME PATIENT 13.3 SEC (12.2-14.7); TOTAL PROTEIN 7.4 GM/DL (6.4-8.2)
--- NOTE | 2020-05-22 09:03 | Cardiac Procedure Note-CS/ASA ---
Pre-Procedure Note Pre-Op Procedure Note H&P Reviewed The H&P was reviewed, patient examined and no changes noted. Date H&P Reviewed: May 22, 2020 Time H&P Reviewed: 09:03 Conscious Sedation Pre-Proced Time 09:03 ASA Score 3 For ASA 3 and 4: Consider anesthesia and medical clearance. Also, for patients with a history of failed moderate sedation consider anesthesia. Airway Lungs Heart ASA score ASA 1: a normal healthy patient ASA 2: a patient with a mild systemic disease (mid diabetes, controlled hypertension, obesity x ASA 3: a patient with a severe systemic disease that limits activity (angina, COPD, prior Myocardial infarction) ASA 4: a patient with an incapacitating disease that is a constant threat to life (CHF, renal failure) ASA 5: a moribund patient not expected to survive 24 hrs. (ruptured aneurysm) ASA 6: a declared brain- patient whose organs are being harvested. For emergent operations, add the letter E after the classification Mallampati Classification Grade 3 Sedation Plan Analgesia, Amnesia, Plan communicated to team members, Discussed options with patient/fam, Discussed risks with patient/fam The patient is an appropriate candidate to undergo the planned procedure, sedation, and anesthesia. The patient immediately re-assessed prior to indication. CONNOR MANRIQUEZ MD May 22, 2020 09:03
[~2020-05-22 10:00] MED LIST changes: +ASPI-1238 PO; +CALC250T2 PO; +DULO30CA49 PO; +GBPN600T PO; +HEParin 1000 UNIT/ML (10ML VIAL) FOR BOLUS ONE; +MELA5TAB14 PO; +MIDAZOLAM 5 MG/5 ML (VERSED) VIAL ONE; +MTP25TSR PO; +MULT-1136 PO; +NITRO DRIP 25000 MCG/D5W 250 ML IV ONE; +OMEG-160 PO; +fentaNYL INJECTION 100 MCG/2 ML AMP ONE
[2020-05-22] MEDS ORDERED: CLOPIDOGREL 300 MG (PLAVIX) TABLET PO ONE (10:11)
[2020-05-22] MEDS ORDERED: ASPIRIN 325 MG (5 GR) TABLET ONE (10:11)
[2020-05-22] MEDS ORDERED: PATIENT MAY USE OWN MEDS, ALL PO SCH (10:30)
[2020-05-22] MEDS ORDERED: ACETAMINOPHEN 325 MG TABLET PO PRN (10:30)
[2020-05-22] MEDS ORDERED: DOCUSATE SODIUM 100 MG (COLACE) CAP PO PRN (10:30)
--- NOTE | 2020-05-22 10:35 | Cardiac Cath Report ---
Cardiac Cath Report Physician (s)/Escrow Processor (s) Physician CONNOR MANRIQUEZ MD Pre-Procedure Diagnosis Pre-Procedure Diagnosis: coronary artery disease Post-Procedure Note Procedure Start Date: May 22, 2020 Name of Procedure: Left heart catheterization PTCA to the LAD Findings/Procedure Note PROCEDURE NOTE: 64-year-old lady with history of coronary artery disease, had a complex intervention and stenting to the proximal LAD in 2018, has been having chest pain, had an abnormal stress test, scheduled for cardiac catheterization possible PTCA. After explaining the procedure to the patient, all pros and cons were explained, all questions were answered. The patient signed the consent and then she was placed on the cardiac catheterization laboratory. Groin was prepped SL fashion local anesthesia was used. Sheath placed in the right femoral artery. Sterling right and left catheter were used to access the coronary system. The right catheter was advanced to the left ventricular cavity, pressure was measured no left ventricular gram was done. Next Patient was noted to have calcification with moderate to severe in-stent restenosis in the proximal LAD. She was given 6000 units of heparin, FL guide was advanced and BMW wire was advanced with difficulty through the stent and proximal distally then I used noncompliant balloon 3X15 mm NC Treck, deployed under 14 destiny with excellent results for expansion of the stent in the proximal and mid was noted with normal recoil. At the end of the procedure the sheath was removed. Closure device was deployed FINDINGS: Hemodynamics LV 194/22, end-diastolic pressure of 22 Aorta 168/67 mean of 408 ANATOMY: Left Main is free of obstructive disease Left Anterior Descending has a proximal stent with moderate severe in-stent re stenosis successful balloon angioplasty using noncompliant balloon 3 x 15 mm with 2 inflation with excellent expansion of the stent and excellent results Left Circumflex is moderate in size with moderate stenosis in the proximal circumflex artery nonobstructive disease Right Coronary Artery is dominant artery with no obstructive disease LV Gram was not done, pressure was measured CONCLUSION: 1. Moderate to severe stenosis in the stent in the proximal LAD, successful balloon angioplasty using 3 x 15 noncompliant balloon with excellent results 2. Moderate stenosis in the proximal circumflex artery, nonobstructive disease, did not change compared to the study of 2018 3. Nonobstructive disease in the right coronary artery 4. Normal left ventricular end-diastolic pressure DISCUSSION AND RECOMMENDATION: Patient was started on aspirin and Plavix, she has been on Eliquis as an outpatient, I will continue for now and then stop aspirin and continue on Plavix and Eliquis Anesthesia Type: Conscious Sedation Estimated blood loss (mL): 25 ml Contrast Amount: 77 ml Total Radiation Dose: 942 mGy Post-Procedure Diagnosis Post-operative diagnosis: Chest pain Coronary artery disease Hypertension Hyperlipidemia CONNOR MANRIQUEZ MD May 22, 2020 10:35 am
[2020-05-22] MEDS: GABAPENTIN 600 MG (NEURONTIN) TAB PO SCH (20:52)
[2020-05-22] MEDS: APIXABAN 5 MG (ELIQUIS) TABLET PO SCH (20:53)
[2020-05-22] MEDS ORDERED: DULoxetine 30 MG (CYMBALTA) CAP PO SCH (21:00)
[2020-05-22] MEDS ORDERED: NON-FORMULARY MEDICATION 1 EA EA (Omega-3/Dha/Epa/Fish Oil (Fish Oil 1,000 mg Softgel) 2 E PO SCH (21:00)
[2020-05-22] MEDS ORDERED: OMEGA 3 (FISH OIL) 1000 MG CAP PO SCH (21:00)
[2020-05-22] MEDS ORDERED: NON-FORMULARY MEDICATION 1 EA EA (Melatonin 5 MG) PO SCH (21:00)
[2020-05-22] MEDS ORDERED: MELATONIN 10 MG TABLET PO SCH (21:00)
[2020-05-23] VITALS: BP 155/80
[2020-05-23 03:27] LABS: HEMOGLOBIN 12.4 g/dL (11.5-16.0); MEAN PLATELET VOLUME 10.1 fL (9.0-12.2); WHITE BLOOD COUNT 11.3 10^3/uL (4.3-11.0)
[2020-05-23 03:53] LABS: BUN/CREATININE RATIO 12; CALCIUM 8.7 MG/DL (8.5-10.1); CARBON DIOXIDE 26 MMOL/L (21-32); CHLORIDE 105 MMOL/L (98-107); CREATININE SERUM 0.84 MG/DL (0.60-1.30); GFR ESTIMATED > 60; GLUCOSE 114 MG/DL (70-105); POTASSIUM 3.7 MMOL/L (3.6-5.0); SODIUM 141 MMOL/L (135-145)
[2020-05-23 04:00] VITALS: BP 154/87
[2020-05-23] MEDS: NS IV 1000 ML 1,000 ML IV SCH ×2 (04:38→04:47)
[2020-05-23 07:41] VITALS: BP 166/80
[2020-05-23] MEDS ORDERED: CLOP75TA28 PO (08:45)
[2020-05-23] MEDS: APIXABAN 5 MG (ELIQUIS) TABLET PO SCH (08:45)
[2020-05-23] MEDS: GABAPENTIN 600 MG (NEURONTIN) TAB PO SCH (08:45)
--- NOTE | 2020-05-23 08:46 | Discharge Inst-Post CATH ---
Discharge Inst-CATH/EP Problems Reviewed?: Yes Post Cardiac Cath/EP D/C Inst Follow Up/Plan Appointment with Dr. Wallis's office in 4 weeks <b>CARDIAC CATH/EP PROCEDURE DISCHARGE INSTRUCTIONS</b> ACTIVITY * Go Home directly and rest. * Limit activity of the leg (or wrist if it was used) for 7 days including aerobics, swimming, jogging, bicycling, etc. * Restrict stair-climbing for 7 days if possible, if not, climb up with your non-cath leg, then bring together on the same step. * Avoid lifting, pushing, pulling or excessive movement of the affected extremity for 7 days. * Customary sexual activity may be resumed after 2 days-use caution not to use a position that strains or causes pain to the affected extremity. * No driving for 24 hours. * NO SMOKING. * Avoid straining for bowel movements for 7 days. * Gentle walking on level ground is allowed. * Returning to work will depend on the type of procedure and the results. Your doctor will discuss this with you. CALL YOUR DOCTOR FOR ANY OF THE FOLLOWING: *If bleeding from the puncture site occurs- Apply gentle pressure to site with clean cloth and call your doctor or EMS. * If a knot or lump forms under the skin, increases in size, or causes pain. * If bruising appears to be worsening or moving further down your leg instead of disappearing. * Temperature above 101 F. CARE OF YOUR GROIN INCISION; * Bruising or purple discoloration of the skin near the puncture site is common. * You may shower only, no bathtub bathing for 5 days. Be careful to avoid slipping as your leg may feel stiff. * If a closure device was used on your femoral artery, please see the attached guide regarding care of the device and your leg. * Leave dressing on FOR 24 hours. CARE OF YOUR WRIST INCISION; * Bruising or purple discoloration of the skin near the puncture site is common. * You may shower. * DO NOT submerge wrist. * Leave dressing on FOR 24 hours. CONNOR WALLIS MD May 23, 2020 8:46 am
[2020-05-23] MEDS ORDERED: NON-FORMULARY MEDICATION 1 EA EA (Cholecalciferol (Vitamin D3) (Vitamin D3) 50 MCG) PO SCH (09:00)
[2020-05-23] MEDS ORDERED: VITAMIN D3 25 MCG (1,000 UNITS) TABLET PO SCH (09:00)
[2020-05-23] MEDS ORDERED: CALCIUM CARBONATE 600 MG (CALCARB) TAB PO SCH (09:00)
[2020-05-23] MEDS ORDERED: LORATADINE (CLARITIN) 10 MG TAB PO SCH (09:00)
[2020-05-23] MEDS ORDERED: ASPIRIN E.C. 81 MG (ECOTRIN) TAB PO SCH (09:00)
[2020-05-23] MEDS ORDERED: amLODIPine 5 MG (NORVASC) TAB PO SCH (09:00)
[2020-05-23] MEDS ORDERED: CLOPIDOGREL 75 MG (PLAVIX) TABLET PO SCH (09:00)
[2020-05-23] MEDS ORDERED: NON-FORMULARY MEDICATION 1 EA EA (Fexofenadine HCl 180 MG) PO SCH (09:00)
--- NOTE | 2020-05-23 09:50 | Cardiology Progress Note ---
Subjective Date Seen by Provider: May 23, 2020 Time Seen by Provider: 09:49 Subjective/Events-last exam patient is feeling well, having no new complaint, denied any chest pain or shortness of breath, no palpitation, groin is healing well. Review of Systems General: No Chills, No Night Sweats, No Fatigue, No Malaise, No Appetite, No Other HEENT: No Head Aches, No Visual Changes, No Eye Pain, No Ear Pain, No Dysphasia, No Sinus Congestion, No Post Nasal Drip, No Sore Throat, No Other Pulmonary: No Dyspnea, No Cough, No Pleuritic Chest Pain, No Other Cardiovascular: No: Chest Pain, Palpitations, Orthopnea, Paroxysmal Noc. Dyspnea, Edema, Lt Headedness, Other Objective-Cardiology Exam Last Set of Vital Signs Vital Signs 05/23/20 05/23/20 05/23/20 07:41 07:44 08:45 Temp 36.0 Pulse 67 Resp 18 B/P (MAP) 166/80 (108) Pulse Ox 92 O2 Delivery Room Air O2 Flow Rate 2.00 Capillary Refill : Less Than 3 Seconds I&O Intake and Output 05/23/20 00:00 Intake Total 700 ml Balance 700 ml Intake Oral 700 ml # Voids 2 General: Alert, Oriented X3, Cooperative HEENT: Atraumatic, PERRLA Neck: Supple, No JVD, No Thyromegaly Lungs: Clear to Auscultation, Normal Air Movement Heart: Regular Rate, Normal S1, Normal S2, No Murmurs Abdomen: Normal Bowel Sounds, Soft, No Tenderness, No Hepatosplenomegaly, No Masses Extremities: No Clubbing, No Cyanosis, No Edema, Normal Pulses, No Tenderness/Swelling Skin: No Rashes, No Breakdown, No Significant Lesion Neuro: Normal Gait, Normal Speech, Strength at 5/5 X4 Ext, Normal Tone, Sensation Intact Psych/Mental Status: Mental Status NL, Mood NL Results Lab Laboratory Tests 05/23/20 03:00 A/P-Cardiology Admission Diagnosis coronary artery disease Hypertension Hyperlipidemia Assessment/Plan Coronary artery disease, abnormal stress test, cardiac catheterization carried out on May 22, 2020 showing severe instent restenosis in the proximal LAD, successful balloon angioplasty using 3 x 15 NC Treck with excellent results, groin is healing well Hypertension, controlled on current medication, continue current medication monitor Hyperlipidemia, continue on current medication monitor lipids Questionable atelectasis on chest x-ray, repeat chest x-ray showed no acute abnormality. CONNOR MANRIQUEZ MD May 23, 2020 09:50
--- NOTE | 2020-05-23 10:20 | Diagnostic Imaging Report ---
INDICATION: Abnormal chest radiograph, atelectasis. TECHNIQUE: Two view chest 9:20 AM CORRELATION STUDY: 05/22/2020 FINDINGS: Heart size and mediastinum are generally stable with vasculature normal. There is perhaps very minimal atelectasis or scarring of the right lung base. No infiltrate. Mildly advanced degenerative changes thoracic spine. IMPRESSION: 1. Negative for acute abnormality of the chest. Dictated by: Dictated on workstation # [id number]
[2020-05-23 11:25] VITALS: BP 159/69
[2020-05-23 12:20] VITALS: BP 159/69
== END 2020-05-23 12:22 | disposition home or self-care (01) ==
LOC: CATH 10:00 → CSD 10:45 → CATH 05-23 12:22
PROVIDERS: ATTEND Internal Medicine Cardiovascular Disease
DX: I25.10 Atherosclerotic heart disease of native coronary artery without angina pectoris (principal); I10 Essential (primary) hypertension; E78.5 Hyperlipidemia, unspecified; E78.2 Mixed hyperlipidemia; G47.33 Obstructive sleep apnea (adult) (pediatric); M19.90 Unspecified osteoarthritis, unspecified site; K44.9 Diaphragmatic hernia without obstruction or gangrene; K21.9 Gastro-esophageal reflux disease without esophagitis; I65.23 Occlusion and stenosis of bilateral carotid arteries; E66.9 Obesity, unspecified; Z68.38 Body mass index [BMI] 38.0-38.9, adult; Z79.82 Long term (current) use of aspirin; Z88.5 Allergy status to narcotic agent; Z87.891 Personal history of nicotine dependence; Z86.73 Personal history of transient ischemic attack (TIA), and cerebral infarction without residual deficits
CPT/HCPCS: 71045; 71046; 80053; 80061; 85027; 85347; 85610; 85730; 87081; 92920; 93005; 93458; C1725; C1760; C1769; C1887; C1894; 36415

== ENCOUNTER → 2021-06-10 | Outpatient (CLI) | payer MEDICARE, OTHER ==
[~2021-06-10] MED LIST changes: -HEParin 1000 UNIT/ML (10ML VIAL) FOR BOLUS ONE; -MIDAZOLAM 5 MG/5 ML (VERSED) VIAL ONE; -NITRO DRIP 25000 MCG/D5W 250 ML IV ONE; -fentaNYL INJECTION 100 MCG/2 ML AMP ONE
== END ==
LOC: CARD 13:34
PROVIDERS: ATTEND Physician Assistant
DX: I49.9 Cardiac arrhythmia, unspecified (principal)
CPT/HCPCS: 93225; 93226

== ENCOUNTER → 2022-05-19 | Outpatient (CLI) | payer MEDICARE, OTHER ==
[~2022-05-19] MED LIST changes: -FEXO-46 PO; +NF-ALLE180 PO; +VITA-212 PO; -VITA-272 PO
== END ==
LOC: CARD 09:30
PROVIDERS: ATTEND Physician Assistant
DX: I10 Essential (primary) hypertension (principal)
CPT/HCPCS: 93306

== ENCOUNTER → 2023-02-01 | Outpatient (CLI) | payer MEDICARE, OTHER ==
[~2023-02-01] MED LIST changes: +CATHETER FLUSH 10 ML SYR IVP PRN; +REGADENOSON 0.4 MG/5 ML SYR IV ONE
[2023-02-01 09:15] VITALS: BP 156/82
--- NOTE | 2023-02-01 16:23 | Cardiology Stress Test Report ---
Stress Test Report Date of Procedure/Referring: Date of Procedure: Feb 01, 2023 PCP Jose Casillas MD Admitting Physician Admitting Physician: Attending Physician: Connor Wallis MD Indications: CAD Baseline Heart Rate: 68 Baseline Blood Pressure: Blood Pressure Systolic: 156 Blood Pressure Diastolic: 82 Baseline Vitals Vital Signs Date Time Temp Pulse Resp B/P (MAP) Pulse Ox O2 Delivery O2 Flow Rate FiO2 02/01/23 09:15 68 156/82 (106) Baseline EKG: Baseline EKG: NSR Summary After explaining the procedure to the patient, she signed a consent and then brought to the stress nuclear laboratory. Patient received 0.4 mg Lexiscan for stress test, ECG, heart rate and blood pressure were monitored continuously. Resting and stress dose of radio tracer were injected, imaging was acquired and reviewed in short axis, horizontal long axis and vertical long axis views. TID: 0.99 SSS: 4 SDS: 2 EF: 66 Patient tolerated Lexiscan well Breast attenuation with mild decrease uptake at the basal to mid anterolateral wall with mild reversibility, overall there is no significant ischemia or infarction noted on SPECT images Normal left ventricular size, ejection fraction 66% Cc CONNOR Dorsey MD Feb 01, 2023 16:23
== END ==
LOC: CARD 06:54
PROVIDERS: ATTEND Internal Medicine Cardiovascular Disease
DX: I25.10 Atherosclerotic heart disease of native coronary artery without angina pectoris (principal)
CPT/HCPCS: 78452; 93017; A9502